=== PATIENT | male | born 1970 | race African-American/Black ===

== ENCOUNTER 2017-02-19 15:46 | Inpatient (IN) | payer MEDICAID ==
[~2017-02-19] VITALS: Ht 175.3 cm; Wt 73.7 kg
[2017-02-19] MEDS ORDERED: HALOPERIDOL 5 MG TABLET PO PRN (19:45)
[2017-02-19] MEDS ORDERED: ZOLPIDEM TARTRATE 10 MG TABLET PO PRN (19:45)
[2017-02-19] MEDS ORDERED: LORazepam 2 MG TABLET PO PRN (19:45)
[2017-02-19] MEDS ORDERED: LITH300C3 PO (20:09)
[2017-02-19] MEDS ORDERED: OLAN10TA3 PO (20:09)
[2017-02-19 20:42] VITALS: BP 115/73
[2017-02-20 07:06] VITALS: BP 117/73
[2017-02-20] MEDS ORDERED: ACETAMINOPHEN 325 MG TABLET PO PRN (07:30)
[2017-02-20] MEDS ORDERED: IBUPROFEN 400 MG TABLET PO PRN (07:30)
[2017-02-20 08:31] LABS: BASOPHILS % (AUTO) 0.4 % (0.0-2.0); EOSINOPHILS % (AUTO) 3.8 % (1.0-6.0); HEMATOCRIT 47.4 % (41-53); HEMOGLOBIN 15.2 g/dL (13.5-17.5); LYMPHOCYTES # (AUTO) 2.1 K/uL (1.0-4.8); LYMPHOCYTES % (AUTO) 32.2 % (22.0-44.0); MEAN CORPUSCULAR VOLUME 91 fL (80-100); MONOCYTES # (AUTO) 0.8 K/uL (0.1-1.0); MONOCYTES % (AUTO) 11.9 % (2.0-9.0); NEUTROPHILS # (AUTO) 3.3 K/uL (1.8-7.7); NEUTROPHILS % (AUTO) 51.7 % (40.0-70.0); PLATELET COUNT (AUTO) 240 K/uL (150-450); RED BLOOD CELL COUNT(AUTO) 5.23 MIL/uL (4.50-5.90); RED CELL DISTRIBUTION WIDTH 13.9 % (11.5-14.5); WHITE BLOOD COUNT (AUTO) 6.4 K/uL (4.5-11.0)
[2017-02-20 08:45] LABS: HEMOGLOBIN A1C 5.6 % (4.5-6.2)
[2017-02-20 08:57] LABS: ALANINE AMINOTRANSFERASE 41 U/L (12-78); ALBUMIN 3.2 g/dL (3.4-5.0); ANION GAP 4 mmol/L (8-16); ASPARTATE AMINOTRANSFERASE 25 U/L (15-37); BILIRUBIN,TOTAL 0.4 mg/dL (0.1-1.0); CALCIUM, TOTAL 9.2 mg/dL (8.8-10.5); CARBON DIOXIDE 30 mmol/L (22-29); CHLORIDE 109 mmol/L (98-107); CHOL/HDL RATIO 3.6 (4.2-7.3); CREATININE 1.43 mg/dL (0.60-1.30); GLOMERULAR FILTR. RATE CALC > 60 mL/min (>60); POTASSIUM 4.8 mmol/L (3.5-5.1); SODIUM SERUM 143 mmol/L (136-145); TOTAL PROTEIN, SERUM 6.4 g/dL (6.4-8.2); UREA NITROGEN, BLOOD 29 mg/dL (7-18)
[2017-02-20 08:58] LABS: THYROID STIMULATING HORMONE 2.22 uIU/mL (0.36-3.74)
[2017-02-20 09:00] VITALS: BP 109/73
[2017-02-20 16:35] VITALS: BP 117/76
[2017-02-20] MEDS: LITHIUM CARBONATE 300 MG CAPSULE PO SCH (20:28)
[2017-02-20] MEDS: OLANZapine 10 MG TABLET PO SCH (20:29)
[2017-02-21 00:38] VITALS: BP 110/71
[2017-02-21 08:14] VITALS: BP 116/57
[2017-02-21 16:14] VITALS: BP 122/78
[2017-02-21] MEDS: LITHIUM CARBONATE 300 MG CAPSULE PO SCH (20:21)
[2017-02-21] MEDS: OLANZapine 10 MG TABLET PO SCH (20:22)
[2017-02-22 00:14] VITALS: BP 103/66
[2017-02-22 08:14] VITALS: BP 103/58
== END 2017-02-22 15:00 | disposition home or self-care (01) | DRG 753 ==
LOC: B2S 19:36
DX: F31.4 Bipolar disorder, current episode depressed, severe, without psychotic features (principal); E44.0 Moderate protein-calorie malnutrition; F20.9 Schizophrenia, unspecified; F19.10 Other psychoactive substance abuse, uncomplicated; F17.210 Nicotine dependence, cigarettes, uncomplicated; Z72.89 Other problems related to lifestyle; Z71.41 Alcohol abuse counseling and surveillance of alcoholic; Z68.24 Body mass index [BMI] 24.0-24.9, adult; Z71.51 Drug abuse counseling and surveillance of drug abuser
CPT/HCPCS: 83036; 84439; 84443